=== PATIENT | male | born 1965 | race Asian ===

== ENCOUNTER 2023-01-07 08:15 | Day surgery (SDC) | payer OTHER ==
[~2023-01-07] VITALS: Ht 165.1 cm; Wt 61.2 kg
[2023-01-07] MEDS ORDERED: LIDOCAINE 2% 100 MG/5 ML UJET TP ONE (09:55)
[2023-01-07] MEDS ORDERED: fentaNYL citrate 0.05 MG/ML VIAL ONE (09:55)
[2023-01-07] MEDS ORDERED: fentaNYL citrate 0.05 MG/ML VIAL IVP ONE (14:00)
[2023-01-07] MEDS ORDERED: EPINEPHrine PFS 0.1 MG/ML SYR IVP ONE (15:52)
== END 2023-01-07 12:35 | disposition home or self-care (01) ==
LOC: MMU 08:15 → MDS 08:15
PROVIDERS: ATTEND Internal Medicine Gastroenterology
DX: Z12.11 Encounter for screening for malignant neoplasm of colon (principal); D12.4 Benign neoplasm of descending colon; F17.210 Nicotine dependence, cigarettes, uncomplicated; Z88.0 Allergy status to penicillin
CPT/HCPCS: 45385; 88305; J0171; J3010